=== PATIENT | female | born 1990 | race American Indian/Alaskan Native ===

== ENCOUNTER 2017-03-25 23:14 | Emergency (ER) | payer OTHER ==
[2017-03-26] MEDS ORDERED: MOTRIN PO ONE (02:24)
[2017-03-26] MEDS ORDERED: MOTRIN ONE (02:27)
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
[2017-03-26 07:23] VITALS: BP 117/79
== END 2017-03-26 04:55 | disposition home or self-care (01) ==
LOC: ED 23:14
DX: M62.830 Muscle spasm of back (principal); M54.6 Pain in thoracic spine; M54.2 Cervicalgia; M25.529 Pain in unspecified elbow; R03.0 Elevated blood-pressure reading, without diagnosis of hypertension; F17.200 Nicotine dependence, unspecified, uncomplicated; Z98.890 Other specified postprocedural states; V49.40XA Driver injured in collision with unspecified motor vehicles in traffic accident, initial encounter; Y93.89 Activity, other specified; Y99.8 Other external cause status; Y92.488 Other paved roadways as the place of occurrence of the external cause
CPT/HCPCS: 99282

== ENCOUNTER 2019-06-12 03:31 | Emergency (ER) | payer SELFPAY ==
[2019-06-12 03:43] VITALS: BP 133/83
== END 2019-06-12 04:07 | disposition left against medical advice (07) ==
LOC: ED 03:31
DX: S89.91XA Unspecified injury of right lower leg, initial encounter (principal); Z53.21 Procedure and treatment not carried out due to patient leaving prior to being seen by health care provider; Y09 Assault by unspecified means; Y93.89 Activity, other specified; Y92.89 Other specified places as the place of occurrence of the external cause; Y99.8 Other external cause status

== ENCOUNTER 2019-06-12 08:34 | Emergency (ER) | payer OTHER ==
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
[2019-06-12] MEDS ORDERED: TETANUS,DIPH,PERTUSS(ACELL) VACCINE 0.5 ML SYRINGE IM ONE (10:25)
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
[2019-06-12 10:52] VITALS: BP 132/93
== END 2019-06-12 10:53 | disposition home or self-care (01) ==
LOC: ED 08:34
DX: S61.250A Open bite of right index finger without damage to nail, initial encounter (principal); S20.319A Abrasion of unspecified front wall of thorax, initial encounter; S10.91XA Abrasion of unspecified part of neck, initial encounter; M25.561 Pain in right knee; I10 Essential (primary) hypertension; F17.200 Nicotine dependence, unspecified, uncomplicated; Z79.899 Other long term (current) drug therapy; Z98.890 Other specified postprocedural states; Y04.0XXA Assault by unarmed brawl or fight, initial encounter; Y93.89 Activity, other specified; Y92.89 Other specified places as the place of occurrence of the external cause; Y99.8 Other external cause status
CPT/HCPCS: 90471; 90715; 99283

== ENCOUNTER 2019-09-28 12:16 | Emergency (ER) | payer OTHER ==
[2019-09-28 12:22] VITALS: BP 153/95
--- NOTE | 2019-09-28 12:40 | Emergency Department Report ---
ED Lower Extremity HPI - General Chief Complaint: Extremity Injury, Lower Stated Complaint: RT KNEE PAIN Time Seen by Provider: 09/28/19 12:38 Source: patient Mode of arrival: Wheelchair Limitations: No Limitations - History of Present Illness MD Complaint: knee injury -: During the night (While at the nightclub last night she slipped had a fall landing onto her right knee causing swelling and pain. 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) Injury: Knee: Right Type of Injury: blunt Severity: mild, moderate Context: fall, direct blow Associated Symptoms: swelling, able to partially bear weight - Related Data Previous Rx's Medication Instructions Recorded Last Taken Type Dicyclomine [Bentyl] 20 mg PO QID PRN #15 tablet 03/09/15 Unknown Rx Promethazine [Phenergan TAB] 25 mg PO Q8HR PRN #15 tab 03/09/15 Unknown Rx Cyclobenzaprine [Flexeril] 10 mg PO TID PRN 4 Days #12 tablet 03/26/17 Unknown Rx Ibuprofen [Motrin] 600 mg PO Q8H PRN 4 Days #12 tablet 03/26/17 Unknown Rx Amoxicillin/Potassium Clav 1 each PO BID 7 Days #14 tablet 06/12/19 Unknown Rx [Augmentin 875-125 Tablet] Naproxen [EC-Naproxen] 375 mg PO BID PRN #14 tablet. 06/12/19 Unknown Rx Ketorolac [Toradol] 10 mg PO Q6H PRN #10 tablet 09/28/19 Unknown Rx Allergies Allergy/AdvReac Type Severity Reaction Status Date / Time No Known Allergies Allergy Unverified 01/14/13 16:31 ED Review of Systems ROS: Stated complaint: RT KNEE PAIN Other details as noted in HPI Comment: All other systems reviewed and negative ED Past Medical Hx - Past Medical History Previous Medical History?: Yes Hx Hypertension: Yes - Surgical History Past Surgical History?: Yes Additional Surgical History: C section x 1 - Social History Smoking Status: Current Every Day Smoker Substance Use Type: Alcohol - Medications Home Medications: Home Medications Medication Instructions Recorded Confirmed Last Taken Type Dicyclomine [Bentyl] 20 mg PO QID PRN #15 tablet 03/09/15 Unknown Rx Promethazine [Phenergan TAB] 25 mg PO Q8HR PRN #15 tab 03/09/15 Unknown Rx Cyclobenzaprine [Flexeril] 10 mg PO TID PRN 4 Days #12 tablet 03/26/17 Unknown Rx Ibuprofen [Motrin] 600 mg PO Q8H PRN 4 Days #12 tablet 03/26/17 Unknown Rx Amoxicillin/Potassium Clav 1 each PO BID 7 Days #14 tablet 06/12/19 Unknown Rx [Augmentin 875-125 Tablet] Naproxen [EC-Naproxen] 375 mg PO BID PRN #14 tablet. 06/12/19 Unknown Rx Ketorolac [Toradol] 10 mg PO Q6H PRN #10 tablet 09/28/19 Unknown Rx ED Physical Exam - General Limitations: No Limitations General appearance: alert, in no apparent distress - Head Head exam: Present: atraumatic, normocephalic - Eye Eye exam: Present: normal appearance, PERRL, EOMI Pupils: Present: normal accommodation - ENT ENT exam: Present: normal exam, mucous membranes moist - Neck Neck exam: Present: normal inspection - Respiratory Respiratory exam: Present: normal lung sounds bilaterally. Absent: respiratory distress - Cardiovascular Cardiovascular Exam: Present: regular rate, normal rhythm. Absent: systolic murmur, diastolic murmur, rubs, gallop - GI/Abdominal GI/Abdominal exam: Present: soft, normal bowel sounds - Extremities Exam Extremities exam: Present: normal inspection, tenderness - Expanded Lower Extremity Exam Right Upper Leg exam: Present: normal inspection Knee exam: Present: tenderness, swelling, effusion, pain w/ pronation/supination, pain/laxity with valgus. Absent: laceration, ecchymosis, deformity, crepidus Lower Leg exam: Present: normal inspection - Back Exam Back exam: Present: normal inspection - Neurological Exam Neurological exam: Present: alert, oriented X3 - Psychiatric Psychiatric exam: Present: normal affect, normal mood - Skin Skin exam: Present: warm, dry, intact, normal color. Absent: rash ED Course Vital Signs 09/28/19 12:20 Temperature 98.7 F Pulse Rate 82 Respiratory 16 Rate Blood Pressure 153/95 O2 Sat by Pulse 100 Oximetry ED Lower Extremity MDM - Radiology Data Radiology results: report reviewed [facility] [address] [place] [address] XRay Report Signed Patient: ALISSON BERRY MR#: [id number] : 1990 Acct:[id number] Age/Sex: 29 / F ADM Date: 09/28/19 Loc: ED Attending Dr: Ordering Physician: PERNELL FISCHER Date of Service: 09/28/19 Procedure(s): XR knee 3V RT Accession Number(s): [id number] cc: PERNELL FISCHER Fluoro Time In Minutes: RIGHT KNEE, 4 VIEWS INDICATION / CLINICAL INFORMATION: fall pain to knee. COMPARISON: Prior right knee radiographs, 06/12/2019 FINDINGS: There is a small suprapatellar joint effusion present. No fracture or subluxation noted. I do not see significant degenerative change. No additional soft tissue abnormality. IMPRESSION: Small suprapatellar joint effusion. This was not present on the 06/12/2019 radiograph. No fracture or subluxation. Signer Name: Vandana Hale MD Signed: 09/28/2019 1:14 PM Workstation Name: [id number] Transcribed By: JR Dictated By: Vandana Hale MD Electronically Authenticated By: Vandana Hale MD Signed Date/Time: 09/28/19 1314 DD/ 1312 TD/TT: Critical care attestation.: If time is entered above; I have spent that time in minutes in the direct care of this critically ill patient, excluding procedure time. ED Disposition Clinical Impression: Knee pain, Internal derangement of knee Disposition: DC-01 TO HOME OR SELFCARE Is pt being admited?: No Does the pt Need Aspirin: No Condition: Stable Instructions: Arthralgia (ED), Crutch Instructions (ED), Ice Pack Application (ED) Prescriptions: Ketorolac [Toradol] 10 mg PO Q6H PRN #10 tablet PRN Reason: Pain Referrals: [facility] [Provider Group] - 3-5 Days GIL BEDOYA MD [Staff Physician] - 3-5 Days [facility] [Provider Group] - 3-5 Days
--- NOTE | 2019-09-28 13:18 | XRay Report ---
RIGHT KNEE, 4 VIEWS INDICATION / CLINICAL INFORMATION: fall pain to knee. COMPARISON: Prior right knee radiographs, 06/12/2019 FINDINGS: There is a small suprapatellar joint effusion present. No fracture or subluxation noted. I do not see significant degenerative change. No additional soft tissue abnormality. IMPRESSION: Small suprapatellar joint effusion. This was not present on the 06/12/2019 radiograph. No fracture or subluxation. Signer Name: Vandana Hale MD Signed: 09/28/2019 1:14 PM Workstation Name: [id number]
== END 2019-09-29 07:15 | disposition home or self-care (01) ==
LOC: ED 12:16
DX: M23.91 Unspecified internal derangement of right knee (principal); I10 Essential (primary) hypertension; F17.200 Nicotine dependence, unspecified, uncomplicated; Z98.890 Other specified postprocedural states; Z79.1 Long term (current) use of non-steroidal anti-inflammatories (NSAID); Z79.899 Other long term (current) drug therapy; W01.0XXA Fall on same level from slipping, tripping and stumbling without subsequent striking against object, initial encounter; Y93.89 Activity, other specified; Y92.89 Other specified places as the place of occurrence of the external cause; Y99.8 Other external cause status
CPT/HCPCS: 99283